=== PATIENT | male | born 1970 | race Caucasian/White ===

== ENCOUNTER → 2018-12-28 | Day surgery (SDC) | payer BC ==
[~2018-12-28] MED LIST: Acetaminophen TAB* 325 MG ONE; Acetaminophen TAB* 325 MG PO ONE; Buffered Lidocaine 1% SYRIN* 1 ML/SYRINGE INTRADERM ONE; Bupivacaine 0.25% EPI 200,000* 30 ML SDV ONE; Bupivacaine 0.5%* 50 ML MDV VIAL ONE; Dexamethasone IV* 4 MG/ML 1 ML (4 MG) ONE; HYDROmorphone INJ1* 1 MG/ML SYRINGE ONE; Ketorolac INJ* 30 MG/ML 1 ML VIAL ONE; Lactated Ringers 1000 ML Bag* 1,000 ML IV SCH; Lidocaine 2% PF* 10 ML AMP ONE; Midazolam* 1 MG/ML 2 ML VIAL (2 MG) ONE; Naloxone* 0.4 MG/ML 1 ML VIAL IV PRN; Ondansetron INJ* 2 MG/ML VIAL IV PRN; Ondansetron INJ* 2 MG/ML VIAL ONE; PROCHLORPERAZINE INJ 5 MG/ML 2 ML VIAL IV PRN; Propofol* 10 MG/ML 20 ML BTL ONE; ceFAZolin 2 GM in NS PREMIX(*) 2 GM/100 ML BAG IVPB ONE; diPHENhydraMINE IV* 50 MG/ML 1 ml VIAL (BENADRYL) IV PRN; fentaNYL* 50 MCG/ML 2 ML VIAL (100 MCG VIAL) ONE; oxyCODONE TAB* 5 MG TAB ONE
[2018-12-28] MEDS: oxyCODONE TAB* 5 MG TAB PO PRN ×2 (09:04→09:06)
[2018-12-28] MEDS: HYDROmorphone INJ1* 1 MG/ML SYRINGE IV PRN ×5 (09:04→09:48)
--- NOTE | 2018-12-28 09:46 | OP ---
Operative Report - Blank - Operative Report Date of Operation: 12/28/18 Note: PATIENT: Shawn Torres DATE OF : 1970 DATE OF SURGERY: 12/28/2018 SURGEON: Radhames England MD [employer] FARMER: ORTIZ Siegel, whos assistance was necessary for positioning, retraction, help with instrumentation, and closure. ANESTHESIOLOGIST: Dr. Moulton PREOPERATIVE DIAGNOSIS: Right ankle instability, peroneal tenosynovitis, and peroneus brevis tear. POSTOPERATIVE DIAGNOSIS: Right ankle instability, peroneal tenosynovitis, and peroneus brevis tear. OPERATION: 1. Right ankle lateral ligament reconstruction. 2. Right peroneus brevis tendon repair. 3. Right synovectomy of peroneal tendon sheath. ANESTHESIA: General IMPLANTS: Arthrex fibertak suture anchors x4 TOURNIQUET TIME: Less than 2 hours with a well-padded thigh tourniquet at 250mmHg SPECIMENS: none ESTIMATED BLOOD LOSS: minimal COMPLICATIONS: none STATUS: Stable from the operating room to the recovery room and then home. INDICATIONS FOR PROCEDURE: Shawn has had persistent right ankle pain and instability and was found to have a peroneus brevis tear on MRI. Both operative and non operative treatment alternatives were reviewed. Further, the nature and risks of surgery were reviewed in careful detail, in the office as well as the pre-operative holding area. Our discussions regarding the risks of surgery included, but were not limited to, infection, wound problems, nerve injury, neuroma, RSD, persistent symptoms, recurrent instability, blood clot, failure of the surgery, and even the remote chance of catastrophic complication. DESCRIPTION OF PROCEDURE: The patient was seen in the preoperative holding unit and informed written consent was obtained. The appropriate extremity was marked. The patient was then brought to the operating room and carefully positioned on the operating room table. Anesthesia was induced. All bony prominences were padded with great care. A chlorhexidine based pre-scrub was performed followed by a chloraprep prep and drape in standard sterile fashion. A surgical safety pause was then conducted in which we confirmed the appropriate patient, extremity, planned procedure, availability of equipment, indication and administration of prophylactic antibiotics, and DVT prophylaxis in the form of a compression boot on the non-surgical extremity. An Esmarch exsanguination of the limb was then performed and the tourniquet inflated. I utilized an incision overlying the distal fibula laterally. I carried the dissection down through the soft tissue to the level of the periosteum and superior peroneal retinaculum (SPR) with care taken to protect the sural nerve, which was not visualized during the procedure. I carefully incised the SPR off of the posterior fibula to expose the peroneal tendons. Dissection of the tendons was carried distally. There was a large amount of inflamed tenosynovium within the tendon sheath. An extensive synovectomy was performed. Additionally, there was a low-lying peroneus brevis muscle belly which was debrided and excised. The tendons were explored at this time for any tears. There was a large longitudinal split tear of the peroneus brevis at the level of the retrofibular groove. I removed loose and frayed tendon in this area , leaving approximately 70% of the tendon intact. I then utilized a 3-0 Ethibond suture to repair the tendon tear. At this point, I carefully inspected the peroneal groove at the posterior aspect of the fibula. This was deemed to have adequate depth so the decision was made not to perform a groove deepening procedure. So at this point I carefully planned out the repair of the superior peroneal retinaculum. I then reduced the tendons and they sat nicely in the retro-fibular groove. The wound was copiously irrigated. I repaired the SPR utilizing Arthrex fibertak suture anchors and #1 vicryl in a horizontal mattress suture pattern. I utilized multiple sutures for this repair, appropriately tensioning the SPR. I was able to pass a [place] under the repaired SPR without difficulty after the repair. I then dissected anteriorly to expose the anterolateral ankle ligaments. We protected the superficial peroneal nerve at all times, which was not visualized within our field. Once we had adequately exposed a pocket anterior to the ligaments, we sharply took the ligaments down off of the anterior and distal aspect of the fibula using a 15 blade. The inferior extensor retinaculum was exposed and protected for subsequent repair later in the procedure. I then utilized a rongeur to make a trough along the fibula to receive the reconstructed ligaments. I then utilized Arthrex fibertak suture anchors in a horizontal mattress suture pattern. These sutures were all passed with great care taken to appropriately tension both the ATFL as well as the CFL in order to get a nice tight repair. We held the ankle in a dorsiflexed and everted position while the ligaments and sutures were tied down. These held the ankle in a much improved position with excellent tension on the ligaments. We then utilized a rotational flap from the periosteum overlying the distal fibula to augment the repair. This was sewn down using a horizontal mattress stich overlying the ATFL. We further augmented the repair by bringing the inferior extensor retinaculum up to the fibula. There was a much improved anterior drawer at this point as compared to pre-operatively. The wound was copiously irrigated. The wound was then closed in a layered fashion utilizing 3-0 Monocryl and 3-0 nylon. A sterile dressing was then applied and the ankle was splinted in a neutral position. All needle and sponge counts were correct at the end of the case. The patient was awakened from anesthesia and transferred to the recovery room in stable condition. There were no complications. ATTESTATION: I attest I was present and scrubbed and performed the critical portions of the procedure myself. POST-OPERATIVE PLAN: The patient will remain [id number] for an anticipated duration of 6 weeks. Follow up will be in 2 weeks for likely suture removal and transition into a short leg cast. We will plan on aspirin for 6 weeks for DVT prophylaxis.
[2018-12-28 10:05] VITALS: BP 140/83
== END | disposition home or self-care (01) ==
LOC: OR 05:52
PROVIDERS: ATTEND Orthopaedic Surgery
DX: S86.311A Strain of muscle(s) and tendon(s) of peroneal muscle group at lower leg level, right leg, initial encounter (principal); M25.371 Other instability, right ankle; R03.0 Elevated blood-pressure reading, without diagnosis of hypertension; F32.9 Major depressive disorder, single episode, unspecified; F41.9 Anxiety disorder, unspecified; Z87.891 Personal history of nicotine dependence; X58.XXXA Exposure to other specified factors, initial encounter
CPT/HCPCS: A9270-GY; C1713; J0690; J1100; J1170; J1885; J2001; J2250; J2405; J2704; J3010; J3490